=== PATIENT | male | born 1965 | race Caucasian/White ===

== ENCOUNTER 2020-07-05 07:00 | Day surgery (SDC) | payer OTHER ==
[~2020-07-05] VITALS: Ht 195.6 cm; Wt 125.2 kg
[~2020-07-05 07:00] MED LIST: COZAAR50 MG PO; DOXYCYCLINE HY100 MG PO; FOLIC ACID0.4 MG PO; IBUPROFEN400 MG PO; LOSARTAN POTASS50 MG PO; OXYCODONE-ACET1 EAC1 PO; VITAMIN D310 MC1 PO
--- NOTE | 2020-07-06 06:21 | OR ---
[facility] [address], [place] [address] Signed DATE OF OPERATION: 07/05/2020 SURGEON: Henrique Leo MD PREOPERATIVE DIAGNOSIS: Screening. POSTOPERATIVE DIAGNOSES: 1. A 12 mm pedunculated polyp at 13 cm (posterior midline, tattoo, snare). 2. A 12 mm pedunculated polyp at 22 cm (tattoo, snare). 3. A 4 mm polyp at 55 cm. 4. A 6 mm polyp at 45 cm. 5. A 4 mm polyp at 18 cm. 6. Minimal internal hemorrhoid tissue. PROCEDURE: 1. Colonoscopy with snare polypectomy, hot biopsy and injection of tattoo x2. 2. Rigid proctoscopy. ESTIMATED BLOOD LOSS: None. INDICATIONS: Milly is a 54-year-old gentleman, asked to see me for his initial screening colonoscopy. He has no lower GI complaints. There is no family history of colon cancer or polyps. In the office, I gave Milly a pamphlet on colonoscopy and we looked at that together in detail. He understands the nature of the test along with the risks including, but not limited to gas bloating, crampy abdominal pain, bleeding, perforation requiring surgery, and missed diagnosis. He also understands the need for IV conscious sedation, he had expressed understanding and wished to proceed. DESCRIPTION OF PROCEDURE: Milly was taken into our endoscopy suite and placed in the left lateral decubitus position. He was given a total of 12 mg of Versed and 200 mcg of fentanyl to cover the case. A digital rectal exam was performed and he does have some increased size and induration to his prostate gland. The adult colonoscope was introduced and advanced all around into the cecum under direct visualization of the camera without difficulty. We could see the appendiceal orifice and the ileocecal valve. His prep was moderate. He had several areas of thick pasty stool that I could not quite irrigate and suction out completely. He might consider additional bowel prep in the future. We did use our Electronically Signed By: HENRIQUE LEO MD 07/06/20 0621 PATIENT NAME: MILLY RIGGS OPERATIVE REPORT DATE OF : 61 REPORT #: [id number] PHYSICIAN: HENRIQUE LEO MD PCP: BRAEDEN MIRANDA MD REPORT IS CONFIDENTIAL AND NOT TO BE RELEASED WITHOUT AUTHORIZATION [facility] [address], [place] [address] Signed snare for the polyps at 22 and 13 cm. came out quite easily with hot biopsy forceps. We also placed a tattoo at both 13 and 22 cm. We did not see any diverticulosis. Once in the rectum, the scope had been retroflexed and he has very minimal standard internal hemorrhoid tissue. After this, the rigid proctoscope was inserted and we could see that the tattoo was in the posterior midline, maybe a slightly off to his right side at 13 cm from the anal verge. After this, the gas was allowed to escape and the rigid proctoscope was removed. Mlily tolerated the procedure quite well. However, he was awake several times during the procedure and quite awake and talking to us quite fluently here in the recovery room. RECOMMENDATIONS: Milly will follow up in my office in 7 to 14 days to review his results. He might consider a double bowel prep in the future. Because of his current findings, he might consider a shorter interval followup colonoscopy anywhere from 12-18 months. Henrique Leo MD ALB/MODL /[id number] cc: MD Braeden Phipps MD Copies: HENRIQUE LEO MD, JONATHAN MD ~ Electronically Signed By: HENRIQUE LEO MD 07/06/20 0621 PATIENT NAME: MILLY RIGGS OPERATIVE REPORT DATE OF : 61 REPORT #: [id number] PHYSICIAN: HENRIQUE LEO MD PCP: BRAEDEN MIRANDA MD REPORT IS CONFIDENTIAL AND NOT TO BE RELEASED WITHOUT AUTHORIZATION
--- NOTE | 2020-07-06 16:02 | PATH ---
[facility] [address] [facility] [place] [place] [address] Signed SPECIMEN(S): A RECTAL POLYP AT 13 CM SPECIMEN(S): B COLON POLYP AT 22 CM SPECIMEN(S): C COLON POLYP AT 55 CM SPECIMEN(S): D COLON POLYP AT 45 CM SPECIMEN(S): E COLON AT 18 CM SPECIMEN SOURCE: A. RECTAL POLYP AT 13 CM B. COLON POLYP AT 22 CM C. COLON POLYP AT 55 CM D. COLON POLYP AT 45 CM E. COLON AT 18 CM CLINICAL HISTORY: Screening. Rule out rectal CA. Colonoscopy. MICROSCOPIC DESCRIPTION: Histologic sections of all submitted blocks are examined by light microscopy. These findings, together with the gross examination, support the pathologic diagnosis. FINAL PATHOLOGIC DIAGNOSIS: A. Rectum, polyp at 13 cm, polypectomy: - Fragments of tubular adenoma with hyperplastic features. - Negative for high-grade dysplasia or malignancy. B. Colon, polyp at 22 cm, polypectomy: - Inflammatory type polyp. - Negative for dysplasia or malignancy. C. Colon, polyp at 55 cm, polypectomy: - Tubular adenoma. - Negative for high-grade dysplasia or malignancy. D. Colon, polyp at 45 cm, polypectomy: - Tubular adenoma. - Negative for high-grade dysplasia or malignancy. E. Colon, 18 cm, biopsy: - Hyperplastic polyp. - Negative for dysplasia or malignancy. NAL:cml:C2NR GROSS DESCRIPTION: Five specimens are received in five containers, labeled "MC." A. The specimen, labeled "MC, 1," and designated on the requisition "rectum PATIENT NAME: MILLY RIGGS PATHOLOGY DATE OF : 61 REPORT #: [id number] PHYSICIAN: SILVIA TORRES PCP: BRAEDEN MIRANDA MD REPORT IS CONFIDENTIAL AND NOT TO BE RELEASED WITHOUT AUTHORIZATION [facility] [address] [place], [place] [address] Signed polypectomy, illegible measurement," is received in formalin and consists of multiple marin soft tissue fragments that measure 0.1 up to 0.6 cm in greatest dimension. The specimen is entirely submitted in cassette (A1). B. The specimen, labeled "MC, 2," and designated on the requisition "colon polypectomy, 22 cm," is received in formalin and consists of one dark red, polypoid, 1.1 x 0.5 x 0.4 cm tissue fragment. The resection margin is inked blue. The specimen is bisected to reveal marin homogenous tissue. The specimen is entirely submitted in cassette (B1). C. The specimen, labeled "MC, 3," and designated on the requisition "colon polypectomy, 55 cm," is received in formalin and consists of one marin soft tissue fragment that measures 0.3 cm in greatest dimension. The specimen is entirely submitted in cassette (C1). D. The specimen, labeled "MC, 4," and designated on the requisition "colon polypectomy, 45 cm," is received in formalin and consists of four marin soft tissue fragments that measure less than 0.1 up to 0.5 cm in greatest dimension. The specimen is entirely submitted in cassette (D1). E. The specimen, labeled "MC, 5," is received in formalin and consists of one marin soft tissue fragment that measures 0.4 cm in greatest dimension. The specimen is entirely submitted in cassette (E1). AI (under the direct supervision of a pathologist) The Gross Description was prepared using a voice recognition system. The report was reviewed for accuracy; however, sound-alike word errors, addition and/or deletions may occur. If there is any question about this report, please contact Client Services. PERFORMING LABORATORY: The technical component was performed by [facility], [address] [place] [id number] (Retail Route Supervisor: Elizabeth Bull MD; CLIA# [id number]). Professional interpretation was performed by [facility], [address] [address] (CLIA# [id number]). Diagnostician: Kaylynn Blackmon MD Pathologist Electronically Signed 07/06/2020 Copies: PATIENT NAME: MILLY RIGGS PATHOLOGY DATE OF : 61 REPORT #: [id number] PHYSICIAN: SILVIA TORRES PCP: BRAEDEN MIRANDA MD REPORT IS CONFIDENTIAL AND NOT TO BE RELEASED WITHOUT AUTHORIZATION [facility] [address] [place], [place] [address] Signed ~ PATIENT NAME: MILLY RIGGS PATHOLOGY DATE OF : 61 REPORT #: [id number] PHYSICIAN: SILVIA TORRES PCP: BRAEDEN MIRANDA MD REPORT IS CONFIDENTIAL AND NOT TO BE RELEASED WITHOUT AUTHORIZATION
== END 2020-07-05 09:35 | disposition home or self-care (01) ==
LOC: DS 07:00 → OPS 07:00 → DS 08:15
PROVIDERS: Colon & Rectal Surgery
PROC: 0DBE8ZZ Excision of Large Intestine, Via Natural or Artificial Opening Endoscopic (ICD-10-PCS; 2020-07-05)
PROC: 3E0H8GC Introduction of Other Therapeutic Substance into Lower GI, Via Natural or Artificial Opening Endoscopic (ICD-10-PCS; 2020-07-05)
PROC: 0DBP8ZZ Excision of Rectum, Via Natural or Artificial Opening Endoscopic (ICD-10-PCS; principal; 2020-07-05 08:15)
DX: Z12.11 Encounter for screening for malignant neoplasm of colon (principal); D12.8 Benign neoplasm of rectum; D12.6 Benign neoplasm of colon, unspecified; K64.8 Other hemorrhoids; I10 Essential (primary) hypertension; J44.9 Chronic obstructive pulmonary disease, unspecified; E55.9 Vitamin D deficiency, unspecified; F17.210 Nicotine dependence, cigarettes, uncomplicated; Z79.899 Other long term (current) drug therapy
CPT/HCPCS: 99153; G0500; J2250; J3010

== ENCOUNTER 2021-07-10 05:40 | Day surgery (SDC) | payer OTHER ==
[~2021-07-10] VITALS: Ht 193 cm; Wt 125.0 kg
--- NOTE | ~2021-07-10 | OR ---
[facility] [address] [facility] [place] [address] Draft DATE OF OPERATION: 07/10/2021 SURGEON: Sapna Rosen DPM PREOPERATIVE DIAGNOSIS: Tarsal tunnel syndrome, right foot. POSTOPERATIVE DIAGNOSIS: Tarsal tunnel syndrome, right foot. PROCEDURE: Tarsal tunnel release, right foot. CAR VARNISHER: Ciro Cordoba DPM. NURSE CLOTH MEASURER MACHINE: Ciro Isaac. ANESTHESIA: Local with MAC approximately 10 mL of 1:1 mix of 2% lidocaine plain and 0.5% ropivacaine were utilized as a posterior tibial nerve block in the mid calf region as well as along the right foot. ESTIMATED BLOOD LOSS: 5 mL or less. HEMOSTASIS: No hemostasis was utilized. Bipolar cautery was utilized. MATERIALS UTILIZED: 4-0 Vicryl and 5-0 nylon. PROCEDURE IN DETAIL: The patient was brought into the operating room and placed upon the operating table in the supine position. Following IV sedation, local anesthesia was administered above the patient's right lower extremity. The foot was then scrubbed, prepped, and draped in the usual sterile technique. Attention was then directed to the medial aspect of the patient's right foot, where an incision was performed extending from approximately 2 cm to 3 cm proximal to the distal malleoli and posterior to the medial malleoli by PATIENT NAME: MILLY RIGGS OPERATIVE REPORT DATE OF : 61 REPORT #: [id number] PHYSICIAN: SAPNA ROSEN DPM PCP: LEI DAVENPORT MD REPORT IS CONFIDENTIAL AND NOT TO BE RELEASED WITHOUT AUTHORIZATION [facility] [address] [place], [place] [address] Draft approximately 2.5 cm. The incision was then brought down in a lazy J-fashion following the tarsal canal and then this incision ended at the superior muscle belly of the abductor hallucis around the talonavicular joint region. The incision was then deepened into the subcutaneous tissue. Care was taken to identify and retract the vital neurovascular structures. Bleeders were cauterized with the bipolar cautery as needed. Careful dissection down through the subcutaneous tissue was down to the deep fascia. At this time, laciniate ligament or the flexor retinaculum was identified. Utilizing curved tenotomy, the flexor retinaculum was released. Utilizing a [place] elevator sliding it underneath the fascial band and then utilizing either the curved tenotomy or #64 [place] blade to release the fibrous band. Most of the tightened area was identified, was located distally. Soft tissue release was continued proximaly up into the area where the neurovascular bundle compartment entered into the posterior compartment of the calf. [place] was easily passed into the posterior compartment and the soft tissue structures overlying this area were released as needed to allow proper flow of neurovascular bundle without binding. Attention was then directed distally, where the deep fascia was released over the neurovascular bundle again to the level of the abductor hallucis muscle belly of the superior aspect. Some of attachments of the far superior aspects of the abductor hallucis were released approximately 1 cm or so of this area was released to allow little bit of gapping to allow proper passage of the neurovascular bundle into the plantar vault area of the right foot. [place] elevator was passed into the plantar vault area carefully to observe for restrictions or binding of again the neurovascular compartment and proper release was identified. Next, the neurovascular bundle compartment was opened and freed by utilizing a [place] elevator passing it underneath the soft tissue and again a curved tenotomy utilized to open this compartment. In this region, there was an abundant amount of venous structures approximately four, all running parallel to each other, they seemed to be laying side by side in a nice smooth pattern. This bundle with open passage around this area and the tarsal canal was found to be free of restrictions. No soft tissue masses were observed and good coloration was also observed in this region. The area was then flushed with copious amounts of sterile normal saline. The deep fascia structures were left open. The integument was closed by utilizing 4-0 Vicryl in the running subcutaneous stitch technique and the skin was then reapproximated and coapted utilized 5-0 nylon in the continuous interlocking suture technique. After closure of the wound, postoperative injection consisting of 2.5 mL of 0.5% ropivacaine mixed with 0.3 mL of Decadron 60 was then injected along the course of the tarsal canal. Postoperative dressings were then applied. First, a silver foam dressing was applied just anterior and posterior to the surgical site to help bridge and offload dressings. Xeroform was applied directly over the surgical site followed by fluff gauze. Coban was then applied over the foam and gauze followed by Coban. The patient had tolerated both the procedure and the anesthesia well. The patient was then escorted to the recovery area with vital signs stable. This was performed with anesthesia and again with good, grossly intact circulation to all digits of the right foot. Following a period of postoperative monitoring, the patient was discharged to PATIENT NAME: MILLY RIGGS OPERATIVE REPORT DATE OF : 61 REPORT #: [id number] PHYSICIAN: SAPNA ROSEN DPM PCP: LEI DAVENPORT MD REPORT IS CONFIDENTIAL AND NOT TO BE RELEASED WITHOUT AUTHORIZATION [facility] [address] [place], [place] [address] Draft home with both written and oral instructions. SHAHEEN Pena/LIS /[id number] Copies: ~ PATIENT NAME: MILLY RIGGS OPERATIVE REPORT DATE OF : 61 REPORT #: [id number] PHYSICIAN: SAPNA ROSEN DPM PCP: LEI DAVENPORT MD REPORT IS CONFIDENTIAL AND NOT TO BE RELEASED WITHOUT AUTHORIZATION
[~2021-07-10 05:40] MED LIST changes: +HYDROCHLOROTHIA25 MG PO; +K-TAB ER20 MEQ PO; +VITAMIN B-6100 MG PO
[2021-07-10] MEDS ORDERED: VITAMIN B122500 MCG PO (05:57)
--- NOTE | 2021-07-10 09:01 | NUR ---
07/10/21 0901 Ashley Casas 0861 PT ARRIVED IN PACU SLEEPY WITH NO C/O'S. 0840 AT BEDSIDE TALKING WITH PT. ALL QUESTIONS ANSWERED. 0850 TO DS. REPORT GIVEN TO RN. SOCK PLACED ON R FOOT AND BOOT TO FOLLOW. PT SIPPING ON BLACK COFFEE.
--- NOTE | 2021-07-10 09:03 | NUR ---
0850: PT ARRIVES TO DS RM 5 FROM PACU AWAKE AND ALERT. PT DENIES ANY PAIN IN RLE, STATES IT IS "TINGLY, BUT THAT IS HOW I LIVE." PT DENIES ANY NAUSEA AND REQUESTS BLACK COFFEE. PT SPOUSE AT BEDSIDE, DC CRITERIA EXPLAINED AND CALL LIGHT WITHIN REACH. 0900: PT SPOUSE EXITS FOR HAIR APPT AND WILL BE BACK WITHIN THE HOUR. PT PROVIDED SECOND CUP OF COFFEE, PUDDING AND CRACKERS. PT CONT TO DENY ANY NAUSEA OR PAIN, WATCHING TV.
--- NOTE | 2021-07-10 09:46 | NUR ---
PT USES CALL LIGHT TO NOTIFY DS STAFF OF URGE TO VOID. PT HAS STEADY GAIT WITH RN ASSIST, DENIES DIZZINESS OR NAUSEA WITH POSITION CHANGE. PT ABLE TO VOID 150 MLS DARK, CONCENTRATED URINE WITH NO PROBLEMS. PT BACK TO DS RM 5 TO GET DRESSED, SPOUSE BACK IN RM AT BEDSIDE. PT ENC TO OPEN CURTAIN WHEN FINISHED.
--- NOTE | 2021-07-10 10:29 | NUR ---
0950: DC INSTRUCTIONS GIVEN VERBALLY AND WRITTEN TO PT. PT ACKNOWLEDGES AN UNDERSTANDING OF INSTRUCTIONS. PT SPOUSE WAITING FOR PT AT FRONT ENTRANCE OF HOSPITAL IN VEHICLE, PT DC FROM DS RM 5 VIA WC TO PERSONAL VEHICLE HOME.
== END 2021-07-10 09:50 | disposition home or self-care (01) ==
LOC: DS 05:40 → OPS 05:40 → DS 06:45 → OPS 06:45
PROVIDERS: ATTEND Podiatrist Foot & Ankle Surgery
PROC: 01NG0ZZ Release Tibial Nerve, Open Approach (ICD-10-PCS; principal; 2021-07-10 06:45)
DX: G57.53 Tarsal tunnel syndrome, bilateral lower limbs (principal); I10 Essential (primary) hypertension
CPT/HCPCS: 01810; J1100; J1885; J2001; J2405; J2704; J2795; J2930; J3010; J7121

== ENCOUNTER 2022-03-17 09:16 | Inpatient (IN) | payer OTHER ==
[~2022-03-17] VITALS: Ht 193 cm; Wt 131.5 kg
[~2022-03-17 09:16] MED LIST changes: +ADVIL200 MG PO; -IBUPROFEN400 MG PO; +VITAMIN B-121000 MCG PO; -VITAMIN D310 MC1 PO; +VITAMIN D350 MC3 PO
[2022-03-17] MEDS ORDERED: PREGABALIN75 MG PO (09:59)
[2022-03-17] MEDS ORDERED: AMOX TR-K CLV1 EAC1 PO (13:30)
[2022-03-17] MEDS ORDERED: PREGABALIN150 MG PO (13:32)
--- NOTE | 2022-03-17 15:00 | NUR ---
CHECKED PT IN. WENT HOME TO LET DOGS OUT, WILL BE BACK AND HER PHONE NUMBER IS IN THE CHART. PT GIVEN WIPES AND LR HANGING.
--- NOTE | 2022-03-17 15:49 | NUR ---
CHECKED ON PT. MONCHO WALDROP IN ROOM. BED HAD COME UNPLUGGED.
--- NOTE | 2022-03-17 15:53 | NUR ---
I was able to have a conversation with Jace and his today regarding their care here at the hospital. Jace remarks that he is happy with his care and relates "They have been very good." They feel informed about their care and at this time and deny questions or concerns. Jace is awake, alert, and oriented to person, place, or time. He answers questions appropriately. At this time rates his pain 4/10, he denies pain medications at this time.
[2022-03-17] MEDS ORDERED: DOXYCYCLINE MO100 M1 PO (17:01)
--- NOTE | 2022-03-17 17:30 | NUR ---
PT OFF THE UNIT TO SURGERY, WITH OLIVIA GRIFFIN RN
--- NOTE | 2022-03-17 18:33 | NUR ---
03/17/221832 Cynhtia Ma 1820PATIENT APPPEARS DROWSY UPON ENTERING PACU. MASK ON 6L 100 O2 SAT. PATIENT RESPONDING APPROPRIATELY TO QUESTIONS, REPORTS NO PAIN. DRESSING TO RIGHT CERVICLE SMALL AMOUNT OF BLOODY DRAIANGE, COVERED WITH SILK TAPE. 1829 PATIENT ON ROOM AIR AWAKE ASKING FOR SOMETHING TO DRINK. NO NEW DRAINAGE TO GAUZE. PATIENT BREATHING REGULAR AND EVEN, 95% ROOM AIR. VSS. NO REPORTS OF PAIN.
[2022-03-17] MEDS ORDERED: ENDOCET 7.5-321 EACH PO (18:44)
[2022-03-17] MEDS ORDERED: TYLENOL EXTRA500 M2 PO (18:45)
--- NOTE | 2022-03-17 19:20 | NUR ---
ON FLOOR, NOTIFIED OF GRAM STAIN RESULTS RECEIVED BY PHONE FROM LAB.
--- NOTE | 2022-03-17 19:27 | NUR ---
PATIENT ARRIVED BACK TO ROOM AT 1900, DENIES PAIN, IS ON ROOM AIR. IN ROOM AND DR. SANTOYO IN TO VISIT. VSS.
--- NOTE | 2022-03-17 19:40 | NUR ---
PT UTILIZES CALL LIGHT FOR IV PUMP ALARMING, PROGRAM AIDE TO ROOM. PT RESTING IN BED WATCHING AT TV. PT'S AT BEDSIDE. PT DENIES FURTHER NEEDS AT THIS TIME. CALL LIGHT IN REACH.
--- NOTE | 2022-03-17 21:00 | NUR ---
IN TO GET VITALS, PT WAS ADLIB TO THE TOILET, VOIDED UNMEASURED, PROVIDED PT WITH URINAL AND TOILET HAT, WILL HAVE PT USE NEXT TIME, NO FURTHER NEEDS AT THIS TIME
--- NOTE | 2022-03-17 23:00 | NUR ---
PT ASSESSMENT COMPLETE. PT RESTING IN BED WITH EYES CLOSED. WAKES EASILY. DENIES PAIN, NASUEA, OR SOB. DRESSING TO R NECK, GAUZE AND SILK TAPE, SLIGHT SHADOWING NOTED TO DRESSING. IV FLUSHED, WNL, GOOD BLOOD RETURN NOTED. IVF INFUSING AT ORDERED. PT DENIES FURTHER NEEDS AT THIS TIME. CALL LIGHT IN REACH.
--- NOTE | 2022-03-18 03:46 | NUR ---
PT ASSESSMENT COMPLETE. PT RESTING IN BED WITH EYES CLOSED, SNORING AUDIBLY. PT WAKES EASILY TO VOICE. PT DENIES PAIN, SOB, OR NAUSEA. BEDSIDE CPOX, SA02 90'S. R NECK WITH GAUZE AND TAPE DRESSING. RED SHADOWING TO DRESSING UNCHANGED FROM PREVIOUS. NO SWELLING NOTED. IVF INFUSING ORDERED. PT UP TO THE BATHROOM AND BACK TO BED WITH SBA. TOLERATED WELL. PT DENIES FURTHER NEEDS. CALL LIGHT IN REACH.
--- NOTE | 2022-03-18 06:37 | NUR ---
PATIENT SEEN IN DOORWAY WAVING STAFF DOWN. PATIENTS IV POLE UNPLUGGED PATIENT EDUCATED ON THE USE OF THE CALL LIGHT. PATIENT STATED " I CANT FIND MY CALL LIGHT". PATIENTS CALL LIGHT UNDER PILLOW. PATIENTS CALL LIGHT PLACED ON NIGHT STAND TABLE. PATIENT ABLE TO VOID. PATIENT VOIDED IN TOILET. PATIENT EDUCATED THE IMPORTANCE OF VOIDING IN URINAL OR HAT. PATIENT STATED "NO ONE TOLE ME THAT". EDUCATED PATIENT TO VOID IN URINAL OR HAT. PATIENT VERBALIZED UNDERSTANDING. PATIENT PROVIDED COFFE AND FRESH ICE WATER. NO FURTHER NEEDS NOTED. CALL LIGHT IN REACH.
--- NOTE | 2022-03-18 07:21 | NUR ---
REPORT RECEIVED FROM PALMA MANN. PT RESTING IN BED. PT DENIES PAIN AND NAUSEA. RESPRIATIONS EVEN AND UNLABORED. OXGYEN SATURATION 95% ON ROOM AIR. PT DENIES REQUESTS OR COMPLAINTS. CALL LIGHT WITHIN REACH. BED RAILS UP.
--- NOTE | 2022-03-18 07:30 | NUR ---
Spoke with Dr. Rosen after he saw Jace. Discussed possibility of pt not having insurance. He feels pt would be ok to dc to home, but would like him to have the MRI. Will follow up with pt, regarding his insurance and if he would consider OHP as he is staying with his children. Discussed my concern of burdening this pt with expensive exams, if he does not have insurance. I also spoke with Almaz Lindsay in . She will contact medicaid in [place] to check if this pt is coverd and if they will pay. Their office opens at 10:30.
[2022-03-18] MEDS ORDERED: FOLIC ACID0.8 MG PO (08:02)
--- NOTE | 2022-03-18 08:04 | NUR ---
MED REC COMPLETE
--- NOTE | 2022-03-18 08:36 | NUR ---
MORNING ASSESSMENT AND MEDICATION DUE. THIS RN TO ROOM. PT DENIES PAIN AND NAUSEA. PT ALERT AND ORIENTED TO ALL. LUNG SOUNDS CLEAR. HEART TONES REGULAR. OXYGEN SATURATIONS 99-100% ON ROOM AIR. CPOX CD'S. DRESSING TO RIGHT CHIN/THROAT NOTED TO BE SATURATED WITH SEROUS ANGUINOUS DRAINAGE. DRESSING CHANGED PER MD ORDER. NEW GAUZE AND SILK TAPE APPLIED. WOUND WNL, NO REDNESS NOTED, MINIMAL SWELLING NOTED WHEN COMPARED TO LEFT SIDE OF THROAT. PT REPORTS "JUST A LITTLE" PAIN WITH DRESSING CHANGE WHICH HE STATES RESOLVED AFTER NEW DRESSING WS PLACED. PT VOIDING QUANITITY SUFFICIENT. PTS ARRIVED TO BEDSIDE, UPDATED ON PLAN OF CARE. PT ANTICIPATING DISCHAGE THIS MORNING, AWAITING FINAL WORD AND RX FROM MD. NO ADDITIONAL REQUESTS OR COMPLAINTS. CALL LIGHT WIHTIN REACH. BED RAILS UP.
--- NOTE | 2022-03-18 10:02 | NUR ---
THIS RN TO ROOM TO CHECK ON PT. PT RESTING IN BED. PT DENIES PAIN AND NAUSEA. DR. SANTOYO CALLED WITH UPDATE AND STATES HE WILL BE HERE SHORTLY. NO ADDITIONAL NEEDS AT THIS TIME. CALL LIGHT OSMEL LIN. PTS AT BEDSIDE.
--- NOTE | 2022-03-18 10:13 | NUR ---
DR. SANTOYO TO BEDSIDE TO ROUND WITH PT PRIOR TO DISCHARGE. DISCHARGE INSTRUCTIONS REVIEWED WITH PT. PT VERBALIZES UNDERSTANDING AND STATES HIS QUESITONS HAVE BEEN ANSWERED. PT VERBALIZES UNDERSTANDING OF FOLLOW UP, DRESSING CHANGES, AND WOUND CARE. IV DC'D PER PROTOCOL, GAUZE AND TAPE APPLIED. TIP INTACT. PT UP TO DRESS, NO ASSISTANCE NEEDED. CALL LIGHT WITHIN REACH. PTS AT BEDSIDE.
[2022-03-18] MEDS ORDERED: METRONIDAZOLE250 MG PO (10:19)
[2022-03-18] MEDS ORDERED: CIPRO500 MG PO (10:19)
--- NOTE | 2022-03-18 10:45 | NUR ---
PT READY FOR DISCHARGE. PT DRESSED AND WAITING IN ROOM. STEADY ON FEET. DISCHARGE INSTRUCTIONS REVIEWED WITH PT AND PTS . PT AND VERBALIZE UNDERSTANDING OF INSTRUCTIONS, DRESSING CHANGES, MEDICATIONS, AND FOLLOW UP, AND STATE THEIR QUESTIONS HAVE BEEN ANSWERED. PT AMBULATED FROM MED/SURG ON HIS OWN WITH PAPERWORK AND RX. PT DENIES ADDITIONAL REQUESTS OR CONCERNS.
--- NOTE | 2022-03-19 14:08 | HP ---
[facility] [address], [place] [address] Signed ADMISSION DATE: 03/17/2022 REASON FOR CONSULTATION AND ADMISSION: Right submandibular abscess. HISTORY OF PRESENT ILLNESS: This large 56-year-old white man recently resigned from his work at [employer]. He is accompanied by his . He was evaluated by Dr. Mayers from the emergency room for swelling and tenderness in the right neck. The patient underwent a right submandibular gland excision for recurrent sialoadenitis according to the patient. This was by Dr. Amaya in [place], [place]. This was about a year ago. The patient did have a postoperative hematoma which resolved over time. The patient and his note that he has had episodic "spitting" of stone like material through the incision on an episodic basis. He showed me a picture on his cell phone of two obvious sialoliths. He was recently seen by Dr. Amaya in his office (apparently five days ago) and no specific diagnosis or intervention was offered according to the patient. On that basis, he presented to [facility] emergency room. Evaluation included a CT scan of the head and neck which showed a probable abscess in the submandibular space. It measures 4 cm in maximum dimension. The patient began having increasing difficulty with opening his mouth though it is not completely impossible at this time. He denies any hematemesis or blood per rectum. He has had no egress from the previous incision site of his right neck. His evaluation shows no evidence of fever. Temperature is 98.4, his pulse is 74 with a blood pressure 138/81. LABORATORY STUDIES: Show white count of 8.8. Chem profile which is essentially normal and COVID serology is pending. PHYSICAL EXAMINATION: GENERAL: This is a pleasant white man who does not look systemically toxic. He is accompanied by his . He is very tall and a rather large. HEENT: He is able to open his mouth, but there is a small amount of limitation of mouth opening. NECK: His right neck is mildly warm and quite tender to touch. His previous submandibular incision from presumed resection is relatively lower in the neck. Electronically Signed By: POPEYE SANTOYO MD 03/19/22 1408 PATIENT NAME: MILLY RIGGS HISTORY AND PHYSICAL DATE OF : 61 REPORT #: [id number] PHYSICIAN: POPEYE SANTOYO MD PCP: LEI DAVENPORT MD REPORT IS CONFIDENTIAL AND NOT TO BE RELEASED WITHOUT AUTHORIZATION [facility] [address], [place] [address] Signed Firmness is noted in the area. Distinct mass is not noted. There is no sign of egress from the incision itself and no stone noted. CHEST: Shows normal respiratory excursion. Pulses regular. ABDOMEN: Nondistended. EXTREMITIES: Without clubbing, cyanosis, or edema. LABORATORY DATA: As previously noted. Imaging study confirms the finding of a large thick rim enhancing fluid collection in the right submandibular gland area 4.0 x 2.5 cm. There is no sign of radiopaque stone. There is reactive right cervical lymphadenopathy. ASSESSMENT: The patient underwent submandibular gland excision according to the history and consistent with incision noted that was said to have had "spitting" of stones through the incision since that time. He did have a postoperative hematoma. Whether or not retained stones from what was likely a very markedly chronically inflamed submandibular gland is uncertain. He shows no evidence of systemic toxicity and no tracheal deviation clinically or radiographically. However, drainage of this fluid collection would be important. I would recommend general anesthesia an incision and drainage of the site and debridement as appropriate. Special risks of bleeding, infection, and of course, nerve injury are all reviewed in detail with the patient and his . Unasyn antibiotic has been initiated by the emergency room physician, which should be reasonable for our presumptive plan of drainage. The patient last ate yesterday and had some liquids this morning. We will plan to do this operation today. MD SANTINO Saldana/SHARONL /[id number] cc: Dr. Talib Moreno [place] Electronically Signed By: POPEYE SANTOYO MD 03/19/22 1408 PATIENT NAME: MILLY RIGGS HISTORY AND PHYSICAL DATE OF : 61 REPORT #: [id number] PHYSICIAN: POPEYE SANTOYO MD PCP: LEI DAVENPORT MD REPORT IS CONFIDENTIAL AND NOT TO BE RELEASED WITHOUT AUTHORIZATION [facility] [address], [place] [address] Signed Copies: ~ Electronically Signed By: POPEYE SANTOYO MD 03/19/22 1408 PATIENT NAME: MILLY RIGGS AIDA HISTORY AND PHYSICAL DATE OF : 61 REPORT #: [id number] PHYSICIAN: POPEYE SANTOYO MD PCP: LEI DAVENPORT MD REPORT IS CONFIDENTIAL AND NOT TO BE RELEASED WITHOUT AUTHORIZATION
--- NOTE | 2022-03-19 14:08 | OR ---
[facility] [address] [place], [place] [address] Signed DATE OF OPERATION: 03/17/2022 SURGEON: Popeye Santoyo MD PREOPERATIVE DIAGNOSES: 1. Right submandibular neck abscess. 2. 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 Amaya in [place], [place]). POSTOPERATIVE DIAGNOSES: 1. Right submandibular neck abscess. 2. 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 Amaya in [place], [place]). 3. Silk suture and fibrotic scar tissue. PROCEDURE: 1. Incision and drainage of large right submandibular abscess. 2. Placement of a quarter-inch Dailey drain with knotted end. 3. Debridement of soft tissue of neck including residual silk suture. ANESTHESIA: General, LMA; Kirk Isaac CRNA. DRAINS: One quarter-inch Dailey. INDICATIONS: This 56-year-old white man presented to the emergency room later in the day today with complaints of significant right neck pain and swelling. He underwent a right submandibular gland excision in [place], [place] by Dr. Amaya approximately a year ago. He did have a postoperative hematoma, which required evacuation and placement of a drain for a few days. He recovered fully from that. He has episodically had "spitting" of what he describes as "stones" from the well-healed incision. Evaluation today shows no sign of open wound, but exam of the right neck in the submandibular area beneath the area of incision in the neck and a CT scan shows a fluid collection at least 4 cm in length. There is no radiopaque stone material or anything of that sort noted. He has been given Unasyn antibiotic and has been recommended to undergo incision and Electronically Signed By: POPEYE SANTOYO MD 03/19/22 1408 PATIENT NAME: MILLY RIGGS OPERATIVE REPORT DATE OF : 61 REPORT #: [id number] PHYSICIAN: POPEYE SANTOYO MD PCP: LEI DAVENPORT MD REPORT IS CONFIDENTIAL AND NOT TO BE RELEASED WITHOUT AUTHORIZATION [facility] [address] [place], [place] [address] Signed drainage of the site under anesthesia. The risks of bleeding, infection, recurrent abscess formation, and other unforeseen complications including nerve injury (unlikely) were reviewed with him. He understands and wished to proceed. FINDINGS: Copious amounts of purulent material were noted. A well-formed abscess cavity was seen as well. There was what appeared to be silk material and what might have been the platysmal layer of muscle as well as a dense fibrotic tissue associated with this. This was excised. Complete drainage was accomplished and irrigation undertaken without sign of any residual abscess. A quarter-inch Patrick drain knotted on the end was placed into the depths of the wound and secured the skin with nylon suture. DESCRIPTION OF PROCEDURE: The patient was brought to the operating room, given a general LMA type anesthetic preoperative antibiotic Unasyn had been given. Sequential compression device stockings were used. The neck was diverted to the left and neck preparation undertaken with a Betadine based solution. The prior incision from the base of the abscess cavity. An incision was made along the previous incision, dissection carried through the dermis and entry to the abscess allowed for copious egress of purulent material. Gram stain and cultures were obtained. Gentle probing of the cavity superiorly and medially showed there to be a large cavity relatively high up. Suction was undertaken to free the cavity of its purulent material. Noted in the incision was what appeared to be silk suture material in the wound as well as dense fibrotic soft tissue. The cavity was well formed. This was debrided sharply and removed. Irrigation was then undertaken with saline solution until clear. A knotted Patrick drain was placed into the depths of the wound and secured the skin with nylon suture. Gauze was packed superficially into the wound to allow for hemostasis. Additional gauze was applied, silk tape applied and the patient was subsequently extubated and taken to recovery room in good condition. Popeye Santoyo MD JM/MODL /[id number] Electronically Signed By: POPEYE SANTOYO MD 03/19/22 1408 PATIENT NAME: MILLY RIGGS OPERATIVE REPORT DATE OF : 61 REPORT #: [id number] PHYSICIAN: POPEYE SANTOYO MD PCP: LEI DAVENPORT MD REPORT IS CONFIDENTIAL AND NOT TO BE RELEASED WITHOUT AUTHORIZATION [address] [address] Signed cc: MD Josh Kelly [place] Dr. Servin [facility] ER Copies: ~ Electronically Signed By: POPEYE SANTOYO MD 03/19/22 1408 PATIENT NAME: MILLY RIGGS OPERATIVE REPORT DATE OF : 61 REPORT #: [id number] PHYSICIAN: POPEYE SANTOYO MD PCP: LEI DAVENPORT MD REPORT IS CONFIDENTIAL AND NOT TO BE RELEASED WITHOUT AUTHORIZATION
== END 2022-03-18 10:45 | disposition home or self-care (01) | DRG 144 ==
LOC: ED 09:16 → MS 13:06
PROVIDERS: ADMIT Surgery; ATTEND Surgery
PROC: 0J910ZZ Drainage of Face Subcutaneous Tissue and Fascia, Open Approach (ICD-10-PCS; 2022-03-17)
PROC: 0JB10ZZ Excision of Face Subcutaneous Tissue and Fascia, Open Approach (ICD-10-PCS; principal; 2022-03-17 18:00)
DX: K12.2 Cellulitis and abscess of mouth (principal); L02.11 Cutaneous abscess of neck; I10 Essential (primary) hypertension; Z20.822 Contact with and (suspected) exposure to COVID-19; G62.9 Polyneuropathy, unspecified; F17.200 Nicotine dependence, unspecified, uncomplicated; Z79.2 Long term (current) use of antibiotics; Z79.899 Other long term (current) drug therapy
CPT/HCPCS: 36415; 70491; 80053; 85025; 87070; 87075; 87205; 88304; 99284-25; J0131; J0295; J1100; J1885; J2001; J2405; J2704; J3010; J7121; Q9967; U0003

== ENCOUNTER 2025-04-01 08:20 | Emergency (ER) | payer OTHER ==
[~2025-04-01] VITALS: Ht 193 cm; Wt 129.1 kg
[~2025-04-01 08:20] MED LIST changes: +AMOX TR-K CLV1 EAC1 PO; +CIPRO500 MG PO; +DOXYCYCLINE MO100 M1 PO; +ENDOCET 7.5-321 EACH PO; +FOLIC ACID0.8 MG PO; +METRONIDAZOLE250 MG PO; +PREGABALIN150 MG PO; +PREGABALIN75 MG PO; +TYLENOL EXTRA500 M2 PO
[2025-04-01 09:05] LABS: BASOPHILS 0.7 % (0-2); EOSINOPHILS 3.2 % (0-6); HEMATOCRIT 44.2 % (35.0-50.0); HEMOGLOBIN 15.1 g/dL (12.0-18.0); LYMPHOCYTES 25.7 % (24-44); MCH 32.5 (27-36); MCHC 34.2 g/dl (30-36); MCV 94.8 fl (81-99); MONOCYTES 10.5 % (0-12); NEUTROPHILS 59.9 % (39-80); PLATELET COUNT 159 K/uL (140-440); RBC 4.66 M/ul (4.3-5.7); RDW 13.6 (10.5-15.0)
[2025-04-01 09:14] LABS: INR 1.02 (0.80-1.30); PROTIME 12.8 Sec (11.2-14.2)
[2025-04-01 09:26] LABS: ALBUMIN 3.3 g/dL (3.4-5.0); ANION GAP 11.1 (7-21); BILIRUBIN, TOTAL 0.7 mg/dL (0.2-1.0); BUN/CREATININE RATIO 12.04 (6.0-28.6); CALCIUM 8.4 mg/dL (8.5-10.1); CREATININE, SERUM 0.83 mg/dL (0.70-1.30); POTASSIUM 4.1 mmol/L (3.5-5.1); PROTEIN, TOTAL 6.6 g/dL (6.4-8.2)
[2025-04-01 10:16] LABS: BILIRUBIN, URINE NEGATIVE (negative); BLOOD/HGB, URINE NEGATIVE (Negative); KETONE, URINE NEGATIVE (Negative); LEUK ESTERASE, URINE NEGATIVE (negative); NITRITE, URINE NEGATIVE (negative)
[2025-04-01 10:22] LABS: BACTERIA, URINE NONE SEEN /hpf (negative); CASTS, URINE NONE SEEN \\lpf; COLLECTION TYPE, URINE CLEAN CATCH; CRYSTALS, URINE NONE SEEN (0-1+); EPITHELIAL CELLS, URINE SQUAMOUS 1+ /lpf (0-1+); RED BLOOD CELLS, URINE 0-1 /hpf (0-5); REFLEX CULTURE, URINE No (No); WHITE BLOOD CELLS, URINE 0-1 /HPF (0-5)
[2025-04-01] MEDS ORDERED: LASIX20 MG PO (11:30)
[2025-04-01] MEDS ORDERED: POTASSIUM CHLO10 MEQ PO (11:30)
[2025-04-01 11:38] VITALS: BP 145/92
[2025-04-02 14:21] LABS: FOLATE,SERUM 7.7 ng/mL (>=5.9)
--- NOTE | 2025-04-02 20:48 | EKG ---
[facility] [address] [facility] [place] [address] Signed Sinus bradycardia with sinus arrhythmia Rightward axis Borderline ECG No previous ECGs available Confirmed by Amandeep Villanueva MD () on 04/02/2025 8:48:05 PM Electronically Signed By: AMANDEEP VILLANUEVA MD 04/02/252047 PATIENT NAME: ONEILMILLY AIDA Electrocardiogram DATE OF : 61 PHYSICIAN: AMANDEEP VILLANUEVA MD REPORT #: [id number] REPORT IS CONFIDENTIAL AND NOT TO BE RELEASED WITHOUT AUTHORIZATION
== END 2025-04-01 11:39 | disposition home or self-care (01) ==
LOC: ED 08:20
PROVIDERS: Emergency Medicine
DX: R60.0 Localized edema (principal); I10 Essential (primary) hypertension; F17.200 Nicotine dependence, unspecified, uncomplicated; Z79.899 Other long term (current) drug therapy
CPT/HCPCS: 36415; 80053; 81001; 82746; 83880; 84443; 85025; 85610; 93005; 93010; 99283

== ENCOUNTER 2025-09-07 06:25 | Day surgery (SDC) | payer OTHER ==
[~2025-09-07] VITALS: Ht 193 cm; Wt 127.0 kg
[~2025-09-07 06:25] MED LIST changes: +LASIX20 MG PO; +MIDAZOLAM HCL 5 MG/5 ML VIAL IV PRN; +POTASSIUM CHLO10 MEQ PO; +fentaNYL citrate 100 MCG/2 ML VIAL IV PRN
[2025-09-07 06:36] VITALS: BP 158/89
[2025-09-07] MEDS ORDERED: LIDOCAINE HCL 1% 5 ML SDV INJ ONE (07:00)
[2025-09-07] MEDS ORDERED: LACTATED RINGER'S 1,000 ML IV SCH (07:00)
[2025-09-07] MEDS ORDERED: IBLOOD GLUCOSE TEST STRIP 1 EA TEST VI PRN (07:00)
--- NOTE | 2025-09-07 07:29 | NUR ---
denies any needs. rick in to visit with pt.
--- NOTE | 2025-09-07 07:33 | NUR ---
VISITED DURING SPIRITUAL CARE ROUNDS. PT APPEARED TO BE IN GOOD SPIRITS, SUPPORTED BY IN ROOM. BOTH DENIED IMMEDIATE NEEDS. STORE RECEIVING SPECIALIST PROVIDED SUPPORTIVE PRESENCE, HOSPITALITY, PRAYER. PT AND EXPRESSED GRATITUDE.
[2025-09-07] MEDS ORDERED: LIDOCAINE HCL 2% 5 ML SDV ONE (07:36)
[2025-09-07] MEDS ORDERED: KETAMINE in NS 50 MG/5 ML SYR ONE (08:42)
--- NOTE | 2025-09-07 09:13 | NUR ---
09/07/25 0912 Rita Ochoa 0910: NELLIE DE OLIVEIRA, PULLS PATIENT'S ORAL AIRWAY AFTER PATIENT FOLLOWS INSTRUCTIONS TO OPEN HIS MOUTH. HOB IS ELEVATED TO 45. PATIENT IS ASKING QUESTIONS.
[2025-09-07 09:31] VITALS: BP 146/82
== END 2025-09-07 09:37 | disposition home or self-care (01) ==
LOC: OPS 06:25 → DS 06:25 → OPS 08:00 → DS 08:45 → OPS 09:37 → DS 10:10 → OPS 10:10
PROVIDERS: ATTEND Surgery
PROC: 0DJD8ZZ Inspection of Lower Intestinal Tract, Via Natural or Artificial Opening Endoscopic (ICD-10-PCS; principal; 2025-09-07 08:00)
DX: Z12.11 Encounter for screening for malignant neoplasm of colon (principal); I10 Essential (primary) hypertension; J44.9 Chronic obstructive pulmonary disease, unspecified; E78.00 Pure hypercholesterolemia, unspecified; R79.83 Abnormal findings of blood amino-acid level; F17.210 Nicotine dependence, cigarettes, uncomplicated; Z86.0100 Personal history of colon polyps, unspecified; Z79.899 Other long term (current) drug therapy
CPT/HCPCS: 00811; J2003; J2704; J3490; J7121